=== PATIENT | male | born 1940 | race Caucasian/White ===

== ENCOUNTER 2019-12-13 08:14 | Emergency (ER) | payer OTHER ==
[~2019-12-13] VITALS: Ht 165.1 cm; Wt 59.4 kg
[2019-12-13 08:17] VITALS: Ht 165.1 cm; Wt 59.4 kg
[2019-12-13 09:15] LABS: BASOPHIL % 0.6 % (0-2); PLATELET COUNT 299 x10^3mcL (130-400)
[2019-12-13 09:26] LABS: CALCIUM 8.8 mg/dL (8.5-10.1); CARBON DIOXIDE 30.1 mmol/L (21-32); CHLORIDE SERUM 104 mmol/L (98-107); CREATININE SERUM 0.7 mg/dL (0.7-1.3); GLUCOSE SERUM 85 mg/dL (74-106); POTASSIUM SERUM 3.6 mmol/L (3.5-5.1); SODIUM SERUM 142 mmol/L (136-145)
[2019-12-13 09:31] LABS: ALBUMIN 3.5 g/dL (3.4-5.0); ALKALINE PHOSPHATASE 65 U/L (46-116); ALT/SGPT 20 U/L (16-63); AST/SGOT 15 U/L (15-37); BILIRUBIN TOTAL 0.3 mg/dL (0.20-1.00); TOTAL PROTEIN, SERUM 7.6 g/dL (6.4-8.2)
[2019-12-13 09:32] LABS: microscopic required? NO
[2019-12-13 09:46] LABS: UA SPECIFIC GRAVITY 1.015 (1.005-1.035); urine erythrocyte NEGATIVE (NEGATIVE)
[2019-12-13 12:04] VITALS: BP 117/72
== END 2019-12-13 12:04 | disposition home or self-care (01) ==
LOC: ED 08:14
PROVIDERS: Emergency Medicine
DX: N30.90 Cystitis, unspecified without hematuria (principal); K57.30 Diverticulosis of large intestine without perforation or abscess without bleeding
CPT/HCPCS: 36415; Q0092

== ENCOUNTER 2020-03-13 08:27 | Emergency (ER) | payer OTHER ==
[~2020-03-13] VITALS: Ht 160 cm; Wt 59.0 kg
[2020-03-13 08:39] VITALS: Ht 160 cm; Wt 59.0 kg
[2020-03-13 09:12] LABS: CARBON DIOXIDE 29.9 mmol/L (21-32); CHLORIDE SERUM 102 mmol/L (98-107); CREATININE SERUM 0.8 mg/dL (0.7-1.3); GLUCOSE SERUM 96 mg/dL (74-106); POTASSIUM SERUM 4.6 mmol/L (3.5-5.1); SODIUM SERUM 140 mmol/L (136-145)
[2020-03-13 09:17] LABS: ALBUMIN 3.4 g/dL (3.4-5.0); ALKALINE PHOSPHATASE 50 U/L (46-116); ALT/SGPT 23 U/L (16-63); AST/SGOT 20 U/L (15-37); BILIRUBIN TOTAL 0.4 mg/dL (0.20-1.00); URIC ACID 6.6 mg/dL (3.5-7.2)
[2020-03-13 09:36] LABS: C REACTIVE PROTEIN < 0.2 mg/dL (<=0.9)
[2020-03-13 09:56] LABS: PLATELET COUNT 283 x10^3mcL (130-400); RED CELL DISTRIBUTION WIDTH 16.1 % (11.5-14.5)
[2020-03-13 10:32] VITALS: BP 144/78
[2020-03-13 10:44] LABS: ERYTHROCYTE SED RATE 10 mm/hr (0-20)
== END 2020-03-13 10:17 | disposition home or self-care (01) ==
LOC: ED 08:27
PROVIDERS: Emergency Medicine
DX: L03.116 Cellulitis of left lower limb (principal)
CPT/HCPCS: 36415